=== PATIENT | female | born 1965 | race Caucasian/White ===

== ENCOUNTER 2020-08-13 10:10 | Emergency (ER) | payer OTHER, SELFPAY ==
--- NOTE | ~2020-08-13 | CT_ITS ---
EXAMINATION: CT brain wo con DATE: 08/13/2020 11:18 INDICATION: Headache. TECHNIQUE: Computed tomography (CT) of the head was performed without intravenous contrast. The mA wa s adjusted according to patient size. Iterative reconstruction technique was employed. The dose-lengt h product was 605.33 mGy-cm. COMPARISON: None FINDINGS: There is no intracranial hemorrhage, acute infarction, or abnormal intracranial mass lesion . The ventricles are normal in size. There is mild mucosal thickening in the paranasal sinuses. The o rbits are normal. The mastoid air cells are normal. IMPRESSION: 1. Normal brain. Reviewed, dictated and finalized at location A. IMPRESSION: 1. Normal brain.
[2020-08-13 10:18] VITALS: BP 168/76; PULSE 71; RESP 18; TEMP 36.2; O2SAT 100
--- NOTE | 2020-08-13 10:43 | ED.GENADULT ---
HPI - General Adult General Chief complaint: Recheck/Abnormal Lab/Rx Stated complaint: high blood pressure Time Seen by Provider: 08/13/20 10:40 Source: patient and RN notes reviewed Mode of arrival: ambulatory Limitations: no limitations History of Present Illness HPI narrative: Patient is 55 years old white female drove herself to the emergency room today because of elevated blood pressure and headache. Patient was diagnosed of hypertension lately and been on lisinopril 10 mg once a day for the last 3 days. Today felt slight headache at the left frontal area also tingling numbness of the tips of her left hand lasted for few seconds then resolved. At home blood pressure was maximum 176 on maximum 110. On arrival to the emergency room blood pressure is 168/76. Patient believes that she is very anxious. Patient denies any fever, chills, nausea, vomiting, chest pain, shortness of breath, back pain or abdominal pain. Patient drinks occasionally, denies any smoking. Related Data Home Medications Medication Instructions Recorded Confirmed escitalopram oxalate 10 mg tablet 10 mg PO DAILY tablet 08/10/20 Allergies Allergy/AdvReac Type Severity Reaction Status Date / Time No Known Allergies Allergy Verified 08/13/20 10:24 Review of Systems Review of Systems: Narrative: CONSTITUTIONAL: Denies fever, chills, or sweats. EYES: Denies visual changes, redness, or discharge. ENT: Denies rhinorrhea, congestion, sore throat, or otalgia. CARDIOVASCULAR: Denies chest pain, palpitations, or edema. RESPIRATORY: Denies cough or dyspnea. GASTROINTESTINAL: Denies abdominal pain, nausea, vomiting, or diarrhea. GENITOURINARY: Denies dysuria or hematuria. SKIN: Denies rash or itching. MUSCULOSKELETAL: Denies back pain, joint pain, or myalgia. NEUROLOGIC: Denies headache, numbness, or weakness. PSYCHIATRIC: Denies anxiety or depression. [facility] Past Medical History Medical History Abnormal weight gain Acute bilateral low back pain with bilateral sciatica Acute bilateral low back pain without sciatica Acute wheezy bronchitis BMI 30.0-30.9,adult Body mass index [BMI] 27.0-27.9, adult (03/13/17) Colitis Dietary counseling and surveillance (08/24/16) Elevated blood pressure reading Encounter for screening colonoscopy Excessive cerumen in both ear canals Excessive cerumen in left ear canal Herpes zoster without complication Hot flashes Neck pain Other symptoms and signs involving emotional state Screening for lipid disorders Viral syndrome Viral URI with cough Family History Family History Sibling Hypertension Family history of diabetes mellitus in first degree relative Father Hypertension Family history of diabetes mellitus in first degree relative Family history of coronary artery disease Diabetes mellitus Mother Hypertension Other Family history of arthritis Family history of blood dyscrasia Family history of gout Family history of kidney disease Social History Social History Smoking status: Never smoker Second hand tobacco smoke exposure: Yes Alcohol intake: current Substance use: never Substance use type: does not use 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 Musculoskeletal: Normal range
[2020-08-13 11:14] LABS: Basophils Percent Auto 0.3 % (0.2-1.2); Eosinophils Absolute Auto 0.2 K/mm3 (0-0.3); Eosinophils Percent Auto 3.4 % (0-4.4); Hematocrit 38.5 % (37.0-47.0); Hemoglobin 12.4 g/dL (12.0-15.0); Immature Granulocyte Absolute 0.01 K/mm3 (0.00-0.031); Immature Granulocyte Percent A 0.2 % (0-0.5); Lymphocytes Absolute Auto 2.03 K/mm3 (0.9-3.2); Lymphocytes Percent Auto 34.9 % (18.3-44.2); Mean Corpuscular HGB Conc 32.2 g/dl (32-36); Mean Corpuscular Hemoglobin 29.2 pg (26-34); Mean Corpuscular Volume 90.6 fl (80-100); Mean Platelet Volume 10.6 fl (7.4-10.4); Monocytes Absolute Auto 0.4 K/mm3 (0.1-0.6); Monocytes Percent Auto 7.4 % (2.6-8.5); Neutrophils Absolute Auto 3.1 K/mm3 (1.3-6.7); Neutrophils Percent Auto 53.8 % (45.5-73.1); Platelet Count Result 190 k/mm3 (150-375); Red Blood Count 4.25 M/mm3 (4.2-5.4); Red Cell Distribution Width 13.7 % (11.5-14.5); White Blood Count 5.8 K/mm3 (4.5-10.0)
[2020-08-13 11:24] LABS: Alanine Aminotransferase 12 U/L (4-35); Albumin Level 4.5 g/dL (3.5-5.1); Alkaline Phosphatase 81 U/L (38-126); Anion Gap 8 mmol/L (8-16); Aspartate Amino Transferase 29 U/L (14-36); Bilirubin,Total 0.8 mg/dL (0.2-1.3); Blood Urea Nitrogen 22 mg/dL (7-17); Calcium 9.4 mg/dL (8.4-10.2); Carbon Dioxide 24 mmol/L (22-30); Chloride 111 mmol/L (98-107); Estimated CRCL calculation 76 ml/min; Estimated Glomerular Filt Rate > 60; Glucose 85 mg/dL (65-105); Potassium 3.9 mmol/L (3.4-5.0); Sodium 143 mmol/L (137-145)
[2020-08-13 11:49] VITALS: BP 171/92; PULSE 67; RESP 18; O2SAT 100
[2020-08-13] MEDS: KETOROLAC (*BKC) 60 MG/2 ML VIAL IM (11:49)
[2020-08-13 11:57] LABS: Add Urine Microscopic? NO; Appearance Urine Clear (Clear); Bilirubin Urine Negative (Negative); Blood Urine Negative (Negative); Color Urine Straw (Yellow); Glucose Urine UA Negative (Negative); Ketones Urine Negative (Negative); Leukocyte Esterase Ur Negative LEU/UL (Negative); Nitrate Urine Negative (Negative); Protein Urine Negative (Negative); Specific Grav Ur 1.009 (1.001-1.035); Urobilinogen Urine Negative mg/dL (<2.0)
--- NOTE | 2020-08-13 12:21 | ECG_ITS ---
Measurements Intervals [place] Rate: 62 P: -3 NE: 169 QRS: -32 QRSD: 108 T: 5 QT: 405 QTc: 412 Interpretive Statements SINUS RHYTHM LEFT AXIS DEVIATION LEFT VENTRICULAR HYPERTROPHY AND ST-T CHANGE POOR R WAVE PROGRESSION, ANTERIOR LEADS HIGH LATERAL INFARCT, AGE INDETERMINATE BORDERLINE T WAVE ABNORMALITY- ANTEROLAT/INF LEADS BASELINE ARTIFACT- I, II, AVR ABNORMAL ECG Electronically Signed On 08-13-2020 14:40:46 CDT by Shola Byrd D.O.
[2020-08-13 13:12] VITALS: BP 118/75; PULSE 82; RESP 16; O2SAT 100
== END 2020-08-13 13:12 | disposition home or self-care (01) ==
PROVIDERS: Emergency Provider Emergency Medicine; PCP Family Medicine
DX: F41.9 Anxiety disorder, unspecified (principal); I10 Essential (primary) hypertension; R94.31 Abnormal electrocardiogram [ECG] [EKG]; I51.7 Cardiomegaly
CPT/HCPCS: 36415; 70450; 80053; 81003; 85025; 93005; 96372; 99284; J1885

== ENCOUNTER 2020-08-21 11:12 | Outpatient (CLI) | payer OTHER, SELFPAY ==
[2020-08-21 11:40] LABS: Hematocrit 35.4 % (37.0-47.0); Hemoglobin 11.8 g/dL (12.0-15.0); Mean Corpuscular HGB Conc 33.3 g/dl (32-36); Mean Corpuscular Hemoglobin 28.9 pg (26-34); Mean Corpuscular Volume 86.6 fl (80-100); Mean Platelet Volume 10.7 fl (7.4-10.4); Platelet Count Result 189 k/mm3 (150-375); Red Blood Count 4.09 M/mm3 (4.2-5.4); Red Cell Distribution Width 13.5 % (11.5-14.5)
[2020-08-21 11:49] LABS: Anion Gap 6 mmol/L (8-16); Blood Urea Nitrogen 13 mg/dL (7-17); Calcium 9.2 mg/dL (8.4-10.2); Carbon Dioxide 24 mmol/L (22-30); Chloride 112 mmol/L (98-107); Cholesterol 192 mg/dL (0-200); Estimated Glomerular Filt Rate > 60; Glucose 93 mg/dL (65-105); HDL Direct 44 mg/dL; Sodium 142 mmol/L (137-145); Triglycerides 82 mg/dL (<150)
[2020-08-21 11:59] LABS: LDL Cholesterol Direct 116 mg/dL
[2020-08-21 12:33] LABS: Vitamin D 25 Hydroxy 19.3 ng/mL
== END 2020-08-21 11:13 | disposition home or self-care (01) ==
PROVIDERS: PCP Family Medicine; Visit Provider Nurse Practitioner Family
DX: E55.9 Vitamin D deficiency, unspecified (principal); Z13.1 Encounter for screening for diabetes mellitus; R53.83 Other fatigue; I10 Essential (primary) hypertension; Z13.29 Encounter for screening for other suspected endocrine disorder; Z13.220 Encounter for screening for lipoid disorders
CPT/HCPCS: 36415; 80048; 80061; 82306; 84443; 85027

== ENCOUNTER 2022-08-27 09:23 | Emergency (ER) | payer OTHER, SELFPAY ==
[2022-08-27 09:40] VITALS: BP 132/78; PULSE 81; RESP 18; TEMP 36.4; O2SAT 97
--- NOTE | 2022-08-27 10:17 | ED.EAR ---
HPI - Ear Problem General Chief complaint: Ear Stated complaint: ear clogging Time Seen by Provider: 08/27/22 10:04 Source: patient and RN notes reviewed Mode of arrival: ambulatory Limitations: no limitations History of Present Illness HPI Narrative: Patient presents today complaining of left ear clogging with decreased hearing since yesterday. Patient believe she has a cerumen impaction. Denies pain or any additional symptoms. She was using a Q-tip prior to symptoms beginning. Related Data Home Medications Medication Instructions Recorded Confirmed escitalopram oxalate 10 mg tablet 10 mg PO DAILY 08/10/20 08/27/22 (Lexapro) Allergies Allergy/AdvReac Type Severity Reaction Status Date / Time No Known Allergies Allergy Verified 08/27/22 09:40 Review of Systems Review of Systems: CONSTITUTIONAL: Denies body aches, fever, chills, or sweats. EYES: Denies visual changes, redness, or discharge. ENT: Denies rhinorrhea, congestion, sore throat, or otalgia.+ left ear clogging CARDIOVASCULAR: Denies chest pain, palpitations, or edema. RESPIRATORY: Denies cough or dyspnea. GASTROINTESTINAL: Denies abdominal pain, nausea, vomiting, or diarrhea. GENITOURINARY: Denies dysuria or hematuria. SKIN: Denies rash, itching, or wounds. MUSCULOSKELETAL: Denies back pain, joint pain, or myalgia. NEUROLOGIC: Denies headache, numbness, tingling, or weakness. PSYCH: Denies depression or anxiety. [facility] Past Medical History Medical History Abnormal weight gain Acute bilateral low back pain with bilateral sciatica Acute bilateral low back pain without sciatica Acute wheezy bronchitis Anxiety BMI 30.0-30.9,adult BMI 31.0-31.9,adult Body mass index [BMI] 27.0-27.9, adult (03/13/17) Colitis COVID-19 Dietary counseling and surveillance (08/24/16) Elevated blood pressure reading Encounter for screening colonoscopy Excessive cerumen in both ear canals Excessive cerumen in left ear canal Herpes zoster without complication Hot flashes Neck pain Other symptoms and signs involving emotional state Palpitations Screening for lipid disorders Viral syndrome Viral URI with cough Family History Family History Sibling Hypertension Family history of diabetes mellitus in first degree relative Father Hypertension Family history of diabetes mellitus in first degree relative Family history of coronary artery disease Diabetes mellitus Mother COPD (chronic obstructive pulmonary disease) Hypotension Other Family history of arthritis Family history of blood dyscrasia Family history of gout Family history of kidney disease Social History Social History Smoking status: Never smoker Second hand tobacco smoke exposure: Yes Alcohol intake: current Substance use: never Substance use type: does not use Living arrangements: with family Occupation/Education: occupation 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 Please see nursing chart for further information. There is no relevant family history pertinent to the presenting complaint Exam Narrative: GENERAL: Well-appearing, well-nourished, and in no acute distress. HEAD: Normocephalic, atraumatic. EYES: EOMI. No redness or drainage. Conjunctivae normal. ENT: Mucous membranes pink and moist. Nares clear. No rhinorrhea. Right TM normal. Left canal with cerumen impaction.. Throat normal. Uvula midline. NECK: Normal AROM. CHEST: No respiratory distress. EXTREMITIES: Normal range of motion. No edema. SKIN: Warm, dry, no rash. Capillary refill
== END 2022-08-27 10:33 | disposition home or self-care (01) ==
PROVIDERS: Emergency Provider Nurse Practitioner; PCP Family Medicine
DX: H61.22 Impacted cerumen, left ear (principal); F41.9 Anxiety disorder, unspecified; Z86.16 Personal history of COVID-19
CPT/HCPCS: 69209; 99212; G0463

== ENCOUNTER 2024-03-27 10:16 | Emergency (ER) | payer OTHER, SELFPAY ==
--- NOTE | 2024-03-27 10:22 | ED_ITS ---
HPI - Ear Problem General Chief complaint: Ear Stated complaint: LT Ear Clogged Time Seen by Provider: 03/27/24 10:31 Source: patient, RN notes reviewed and old records reviewed Mode of arrival: ambulatory Limitations: no limitations History of Present Illness HPI Narrative: 58-year-old female presents to the [facility] with complaints of having her left ear clogged. States that she tried calling her primary to get her ears flushed. Was unable to get her in. States hearing and clogged have been going on approximately 2 days Related Data Allergies Allergy/AdvReac Type Severity Reaction Status Date / Time No Known Allergies Allergy Verified 03/27/24 10:37 Review of Systems Review of Systems: All systems reviewed & are unremarkable except as noted in HPI and below Constitutional: Constitutional: Reports no additional constitutional complaints ENT: Reports as per HPI Cardiovascular: Cardiovascular: Reports no additional cardiovascular complaints, Denies chest pain and Denies dyspnea Respiratory: Respiratory: Reports no additional respiratory complaints, Denies chest congestion, Denies cough and Denies dyspnea Musculoskeletal: Musculoskeletal: Reports no additional musculoskeletal complaints Integumentary/Breasts: Skin/Breast: Reports system reviewed and no additional complaints, except as docu PMFSH Past Medical History Medical History Complicated grieving Back pain Wheezing Pneumonia Snoring Sinusitis COVID-19 Excessive cerumen in left ear canal Anxiety Palpitations Screening cholesterol level Intermittent chest pain Abnormal weight gain Acute bilateral low back pain with bilateral sciatica Acute bilateral low back pain without sciatica Acute wheezy bronchitis Colitis Dietary counseling and surveillance (08/24/16) Elevated blood pressure reading Encounter for screening colonoscopy Excessive cerumen in both ear canals Excessive cerumen in left ear canal Herpes zoster without complication Hot flashes Neck pain Other symptoms and signs involving emotional state Screening for lipid disorders Viral URI with cough Viral syndrome Sore throat Family History Family History Sibling Hypertension Family history of diabetes mellitus in first degree relative Father Hypertension Family history of diabetes mellitus in first degree relative Family history of coronary artery disease Diabetes mellitus Mother COPD (chronic obstructive pulmonary disease) Hypotension Sibling Multiple sclerosis Immune disorder Other Family history of arthritis Family history of blood dyscrasia Family history of gout Family history of kidney disease Social History Social History Smoking status: Never smoker Second hand tobacco smoke exposure: Yes Alcohol intake: current Substance use: never Substance use type: does not use Lack of Transportation: No Lack of Food: Never True Current Housing: I Have Housing Concerned About Future Housing: No Difficulty Paying Gas/Electric Bills: No Difficulty Paying for Meds: No Currently Unemployed: No Education: High School Diploma/GED Difficulty w/ Childcare or Family Care: No Living arrangements: with family Occupation/Education: occupation 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 There is no relevant family history pertinent to the patient complaint. Exam Const: General: cooperative, healthy appearing, comfortable, no acute distress, well developed, alert and well nourished Nutritional Appearance: well nourished Orientation/consciousness: patient oriented x3 Limitations: no limitations HENMT: Head: normal to inspection Ears: hearing grossly normal bilaterally, external ears normal, TM normal on the right, mastoids normal, no periauricular adenopathy and Abnormal EAC present cerumen impaction on the left; no erythema, no edema and no EA tenderness Face/Nose/Sinus: Normal external nose present, normal facial exam and face symmetric Face and sinus: normal facial exam and face symmetric Mouth: Yes Normal oral and palatal mucosa present, Yes lip normal and Yes tongue normal Eyes: General: appearance normal, both eyes and all related structures Neck: Neck: normal visual inspection, full ROM and no meningeal signs Chest: Chest palpation & inspection: normal inspection of the chest Resp: Effort & Inspection: normal respiratory effort and able to speak in complete sentences Cardio: Rate: regular rate Skin: General skin exam: normal color and no rashes or lesions noted Lesions: no lesions Rashes: no rashes Wounds: no wounds Neuro: General: patient oriented x3, gait normal, tone normal, moves all extremities and no meningeal signs Cognition (Neuro): normal cognition Speech: normal speech Gait exam (Neuro): Normal gait present Extrem: General: normal to inspection, full ROM, capillary refill normal and normal gait Psych: Appearance: grossly normal and well kempt Mental Status: mental status grossly normal Speech and movement: Normal speech and movement present and Clear speech present Affect: normal affect Attitude: cooperative Course Course Level of Care: Express Care Visit Vital Signs Vital signs: Vital Signs Temperature 97.6 F 03/27/24 10:28 Pulse Rate 71 03/27/24 10:28 Respiratory Rate 18 03/27/24 10:28 Blood Pressure 123/70 03/27/24 10:28 Pulse Oximetry 100 03/27/24 10:28 Oxygen Delivery Room Air 03/27/24 10:28 Temperature 97.6 F 03/27/24 10:28 Pulse Rate 71 03/27/24 10:28 Respiratory Rate 18 03/27/24 10:28 Blood Pressure 123/70 03/27/24 10:28 Pulse Oximetry 100 03/27/24 10:28 Oxygen Delivery Room Air 03/27/24 10:28 Reviewed Procedures Ear Wax Removal Left Ear: Ear Wax Removal Date: 03/27/24 Ear Wax Removal Time: 10:45 Cerumenolytic Used: other (water and peroxide) Results: Re-examined: cerumen removed completely TM Examination: TM(s) intact, normal appearance Ear Canal Exam: atraumatic Patient Tolerated Procedure: well Complications: no problems Technique: ear canal irrigated Additional Comments: Explained procedure to patient, verbal consent obtained. The ear irrigated with saline and peroxide. Patient tolerated well Medical Decision Making MDM Narrative Medical decision making narrative: Patient sitting comfortably in exam room. Nontoxic, vitals stable. Patient in no acute distress Patient presents for having the left ear canal irrigated due to possible excessive earwax. On exam cerumen impaction noted. Patient presents for irrigation. Ear canal irrigated. Patient tolerated well Discharge instructions reviewed with patient, as well as provided in writing per nursing staff. The instructions also include specific and strict return/GO TO THE ER as well as f/u information. All questions have been answered, and the patient deny any further questions with discharge and discharge plan. Some parts of this dictation were generated by voice recognition software and may contain typographical and/or grammatical inaccuracies. Medical Records Medical records reviewed: Yes I reviewed the external patient's medical records. Vital Signs Vital Signs: Vital Signs Temperature 97.6 F 03/27/24 10:28 Pulse Rate 71 03/27/24 10:28 Respiratory Rate 18 03/27/24 10:28 Blood Pressure 123/70 03/27/24 10:28 Pulse Oximetry 100 03/27/24 10:28 Oxygen Delivery Room Air 03/27/24 10:28 Temperature 97.6 F 03/27/24 10:28 Pulse Rate 71 03/27/24 10:28 Respiratory Rate 18 03/27/24 10:28 Blood Pressure 123/70 03/27/24 10:28 Pulse Oximetry 100 03/27/24 10:28 Oxygen Delivery Room Air 03/27/24 10:28 Reviewed Lab Data Lab results reviewed: Yes I reviewed the patient's lab results. Labs: Reviewed Critical Care Time Critical Care Time Critical Care Time: No Discharge Plan Discharge Clinical Impression: Impacted cerumen of left ear Patient Disposition: Home, Self-Care Condition: Stable Instructions: Antibiotic Form, Carbamide Peroxide (Into the ear) Additional Instructions: You had excessive Cerumen (EAR wax impaction). Do not use Q-tips or put anything in the ear. This can damage the ear. Instead , use Debrox or ear wax remover. Place 5 drops in ear after a hot shower and place a warm compress over the ear for 15-20 minutes. alternate doing this every 3-4 days. It will break up the wax gently. Once you have all of the cerumen out of your ears, you may do preventative treatment to prevent this from happening again. Use 5 drops once weekly after a hot shower. Patient Language: Vietnamese Prescriptions: No Action omeprazole 20 mg capsule,delayed release(DR/EC) See Rx Instructions .ROUTE .COMPLEX Qty: 180 3RF Dose Instruction: TAKE 1 CAPSULE TWICE A DAY Rx Instructions: TAKE 1 CAPSULE TWICE A DAY lisinopril-hydrochlorothiazide 10-12.5 mg tablet 1 tablet PO DAILY Qty: 90 1RF Follow-up/Referrals: Neri Arevalo MD [Primary Care Provider] - 2 Weeks [facility] Time of Disposition: 10:51
[2024-03-27 10:28] VITALS: BP 123/70; PULSE 71; RESP 18; TEMP 36.4; O2SAT 100
[2024-03-27] MEDS: HYDROGEN PEROXIDE 3% SOLN(*SP) 473 ML BOTTLE 120 ML IRRIGATION (10:48)
== END 2024-03-27 10:58 | disposition home or self-care (01) ==
PROVIDERS: Emergency Provider Nurse Practitioner; PCP Family Medicine
DX: H61.22 Impacted cerumen, left ear (principal); Z86.16 Personal history of COVID-19
CPT/HCPCS: 69209; 99212; A9270; G0463

== ENCOUNTER 2025-02-12 13:59 | Outpatient (CLI) | payer OTHER, SELFPAY ==
--- NOTE | ~2025-02-12 | MM_ITS ---
EXAMINATION: MM screening rhina BI w zay HISTORY: Screening TECHNIQUE: Craniocaudal and mediolateral oblique 3-D tomosynthesis images were obtained and synthetic 2-D images were generated. CAD analysis was submitted and interpreted. COMPARISON: No prior mammogram is available for comparison at this institution. BREAST PARENCHYMAL COMPOSITION: Not dense: There are scattered areas of fibroglandular density. FINDINGS: There is no evidence of suspicious mass, calcification, or architectural distortion to suggest malignancy in either breast. There has been no suspicious interval change. IMPRESSION: 1. No mammographic evidence of malignancy. 2. Recommend routine screening mammography in one year. BI-RADS Category 1: Negative Reviewed, dictated and finalized at location B.
== END 2025-02-12 14:00 | disposition home or self-care (01) ==
LOC: MICIMG 14:00
PROVIDERS: PCP Family Medicine; Visit Provider Obstetrics & Gynecology Gynecology
DX: Z12.31 Encounter for screening mammogram for malignant neoplasm of breast (principal)
CPT/HCPCS: 77063; 77067

== ENCOUNTER 2025-02-25 16:13 | Emergency (ER) | payer OTHER, SELFPAY ==
--- NOTE | ~2025-02-25 | XR_ITS ---
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 Findings: No acute fracture or malalignment. Moderate tricompartmental degenerative changes Soft tissues unremarkable. Impression: No acute fracture or malalignment. Reviewed, dictated and finalized at location P. NE DESIGNER Impression: No acute fracture or malalignment.
[2025-02-25 16:20] VITALS: BP 143/80; PULSE 73; RESP 16; TEMP 36.5; O2SAT 100
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
== END 2025-02-25 16:59 | disposition home or self-care (01) ==
PROVIDERS: PCP Family Medicine
DX: M25.561 Pain in right knee (principal)
CPT/HCPCS: 73562; 99213; G0463